=== PATIENT | female | born 1990 ===

== ENCOUNTER 2024-12-19 18:27 | Emergency (ER) | payer OTHER ==
[~2024-12-19] VITALS: Ht 165.1 cm; Wt 100.0 kg
[2024-12-19 18:47] VITALS: BP 126/73; PULSE 90; RESP 18; TEMP 100.3; O2SAT 96
[2024-12-19] MEDS ORDERED: PROP40TA7 PO (18:48)
[2024-12-19] MEDS ORDERED: BUPR-514 PO (18:48)
[2024-12-19] MEDS ORDERED: LAMO-24 PO (18:48)
[2024-12-19] MEDS ORDERED: ATOR10TA PO (18:48)
[2024-12-19] MEDS ORDERED: HYDR-4584 PO (18:48)
[2024-12-19 19:07] LABS: COVID AG,FIA SOURCE NASAL SWAB
[2024-12-19 19:28] LABS: SARS-COV2 (COVID) ANTIGEN,FIA Negative (Negative)
[2024-12-19 19:29] LABS: INFLUENZA TYPE A NEGATIVE FOR TYPE A (NEGATIVE); INFLUENZA TYPE B NEGATIVE FOR TYPE B (NEGATIVE)
[2024-12-19] MEDS ORDERED: OXYM15SP63 NASAL (20:47)
[2024-12-19] MEDS ORDERED: GUAIFDM PO (20:48)
[2024-12-19] MEDS ORDERED: BENZ-227 PO (20:48)
== END 2024-12-19 21:06 | disposition home or self-care (01) ==
LOC: EMS 18:27
DX: J06.9 Acute upper respiratory infection, unspecified (principal); R11.2 Nausea with vomiting, unspecified; E78.00 Pure hypercholesterolemia, unspecified; F32.A Depression, unspecified; F41.9 Anxiety disorder, unspecified; Z90.49 Acquired absence of other specified parts of digestive tract; Z79.899 Other long term (current) drug therapy; Z20.822 Contact with and (suspected) exposure to COVID-19
CPT/HCPCS: 87804; 99283